=== PATIENT | male | born 1990 | race Two or more races ===

== ENCOUNTER 2016-07-01 07:53 | Emergency (ER) | payer OTHER ==
[2016-07-01 08:03] VITALS: BP 147/83; PULSE 60; TEMP 98.2; BMI 37.0
[2016-07-01] MEDS ORDERED: IBUPROFEN 600 MG TABLET (FP) PO ONE ×2 (08:48→08:54)
--- NOTE | 2016-07-01 08:55 | PDOC ---
History of Present Illness - General Chief Complaint: Injury Stated Complaint: FALL Time Seen by Provider: 07/01/16 08:30 History Source: Patient Exam Limitations: No Limitations - History of Present Illness Initial Comments: 07/01/16 08:50 26 yr male with c/o left ankle injury this am slipped on ice and twisted ankle. Occurred: reports: just prior to arrival Severity: Yes: mild Lower Extremity Pain Location: left: ankle Method of Injury: Yes: twisted Modifying Factors: improves with: None Past History - Past Medical History Allergies/Adverse Reactions: Allergies Allergy/AdvReac Type Severity Reaction Status Date / Time lactose AdvReac Verified 07/01/16 08:04 Home Medications: Ambulatory Orders NK [No Known Home Medication] 07/01/16 Other medical history: PT DENIES MEDICAL HX - Family Disease History Comment:: 07/01/16 08:51 none - Psycho/Social/Smoking Cessation Hx Suicidal Ideation: No Smoking History: Never smoked Hx Alcohol Use: Yes (WEEKENDS) Drug/Substance Use Hx: No Review of Systems - Review of Systems Able to Perform ROS?: Yes Is the patient limited Urdu proficient: No Constitutional: No: Symptoms Reported HEENTM: No: Symptoms Reported Respiratory: No: Symptoms reported Cardiac (ROS): No: Symptoms Reported ABD/GI: No: Symptoms Reported : No: Symptoms Reported Musculoskeletal: Yes: Symptoms Reported, See HPI Integumentary: Yes: See HPI *Physical Exam - Vital Signs Last Vital Signs Temp Pulse Resp BP Pulse Ox 98.2 F 60 18 147/83 97 07/01/16 08:01 07/01/16 08:01 07/01/16 08:01 07/01/16 08:01 07/01/16 08:01 - Physical Exam General Appearance: Yes: Nourished, Appropriately Dressed HEENT: positive: EOMI, AZEB Extremity: positive: Normal Capillary Refill, Normal Inspection, Tender (medial left ankle, no swelling or deformity nv intact ) Integumentary: positive: Normal Color, Dry, Warm Neurologic: positive: manager material II-XII NML intact, Fully Oriented, Alert, Normal Mood/ Affect, Normal Response, Motor Strength 5/5 Procedures - Splinting Pre-Made Type: aircast (crutches) ED Treatment Course - RADIOLOGY Radiology Studies Ordered: Category Date Time Status ANKLE & FOOT-LEFT* [RAD] Stat Radiology 07/01/16 08:15 Completed Medical Decision Making - Medical Decision Making 07/01/16 08:52 cc: left ankle injury xray is negative will give motrin and ice pack air cast and crutches *DC/Admit/Observation/Transfer Diagnosis at time of Disposition: Ankle sprain Qualifiers: Encounter type: initial encounter Involved ligament of ankle: other ligament Laterality: left Qualified Code(s): S93.492A - Sprain of other ligament of left ankle, initial encounter - Discharge Dispostion Disposition: HOME Condition at time of disposition: Good - Referrals Referrals: Deonte Santana MD [Staff Physician] - - Patient Instructions Additional Instructions: take ibuprofen 600mg every 6hrs for pain elevate and apply ice every 2hrs for 20 minutes use the aircast splint while awake remove to sleep crutches to ambulate follow with for follow up this week or next week - Post Discharge Activity Work/School Note: Back to Work
== END 2016-07-01 09:06 | disposition home or self-care (01) ==
LOC: JERFT 07:53
PROC: 2W3MX1Z Immobilization of Left Lower Extremity using Splint (ICD-10-PCS; principal; 2016-07-01)
DX: S93.492A Sprain of other ligament of left ankle, initial encounter (principal); W00.2XXA Other fall from one level to another due to ice and snow, initial encounter; Y93.89 Activity, other specified; Y92.488 Other paved roadways as the place of occurrence of the external cause
CPT/HCPCS: 73610-TC-LT; 73630-TC-LT; 99281-25

== ENCOUNTER 2020-07-13 10:28 | Emergency (ER) | payer BC ==
[2020-07-14 07:08] LABS: SARS-CoV-2 NAA Not Detected (Not Detected)
== END 2020-07-13 13:19 | disposition home or self-care (01) ==
LOC: JVIRT 10:28
DX: Z11.52 Encounter for screening for COVID-19 (principal)
CPT/HCPCS: C9803; G2251-GT; U0003; U0005

== ENCOUNTER 2021-04-01 08:12 | Emergency (ER) | payer BC ==
[2021-04-01 08:27] VITALS: BP 133/81; PULSE 59; TEMP 97; BMI 36.7
[2021-04-01] MEDS ORDERED: KETOROLAC TROMETHAMINE 30 MG/1 ML VIAL IM ONE (09:10)
[2021-04-01] MEDS ORDERED: KETOROLAC TROMETHAMINE 15 MG/ML VIAL ONE (09:11)
[2021-04-01] MEDS ORDERED: KETOROLAC TROMETHAMINE 15 MG/ML VIAL IM ONE (09:17)
== END 2021-04-01 11:14 | disposition home or self-care (01) ==
LOC: JERFT 08:12 → JER 08:12 → JERFT 11:14
PROC: 3E0233Z Introduction of Anti-inflammatory into Muscle, Percutaneous Approach (ICD-10-PCS; principal; 2021-04-01)
DX: M79.674 Pain in right toe(s) (principal)
CPT/HCPCS: 73660-TC-FY; 99284-25